=== PATIENT | female | born 1985 | race Caucasian/White ===

== ENCOUNTER 2016-11-21 14:43 | Outpatient (CLI) | payer BC | END 2016-11-21 23:59 | disposition home or self-care (01) | LOC: LAB 14:43 | PROVIDERS: ATTEND Obstetrics & Gynecology | DX: Z34.01 Encounter for supervision of normal first pregnancy, first trimester (principal) | CPT/HCPCS: 84144; 84702-TC; 86900-TC ==

== ENCOUNTER 2016-12-13 13:37 | Outpatient (CLI) | payer BC ==
[2016-12-13 15:26] LABS: BASOPHILS % (AUTO) 0.3 % (0.0-2.0); DIFF TOTAL % 100 %; EOSINOPHILS % (AUTO) 0.3 % (0.0-6.0); HEMATOCRIT 39 % (33-45); HEMOGLOBIN 13.4 g/dL (11.5-14.8); LYMPHOCYTES # (AUTO) 1.6 /CMM (0.8-4.8); MEAN CORPUSCULAR HEMOGLOBIN 31 PG (26.0-33.0); MEAN CORPUSCULAR HGB CONC 34 g/dl (31.0-36.0); MEAN CORPUSCULAR VOLUME 89 fL (82-100); MONOCYTES # (AUTO) 0.4 /CMM (0.1-1.30); MONOCYTES % (AUTO) 4.5 % (2.0-12.0); NEUTROPHILS # (AUTO) 6.7 /CMM (1.8-8.9); NEUTROPHILS % (AUTO) 76.9 % (43.0-81.0); PLATELET COUNT (AUTO) 253 /CMM (150-450); WHITE BLOOD COUNT (AUTO) 8.7 K/uL (4.3-11.0)
[2016-12-14 07:25] LABS: *RAPID PLASMA REAGIN QUAL Non Reactive (Non Reactive)
[2016-12-14 09:55] LABS: HIV-1 p24 ANTIGEN NON REACTIVE (NONREACTIVE); HIV-1/2 ANTIBODY NON REACTIVE (NONREACTIVE)
[2016-12-15 16:03] LABS: *HGBFR CHEMOGLOBIN SOLUBILITY Negative (Negative)
== END 2016-12-13 23:59 | disposition home or self-care (01) ==
LOC: LAB 13:37
PROVIDERS: ATTEND Obstetrics & Gynecology
DX: Z33.1 Pregnant state, incidental (principal)
CPT/HCPCS: 83021; 84443-TC; 85025-TC; 85660; 86592; 86803; 86850-TC; 87340

== ENCOUNTER 2017-03-04 15:40 | Emergency (ER) | payer BC ==
[~2017-03-04] VITALS: Ht 160 cm; Wt 72.1 kg
--- NOTE | 2017-03-04 15:40 | NUR ---
PT FREQUENT URINATION X 2 DAYS. VSS. AWAITING MD ORDER
--- NOTE | 2017-03-04 15:50 | NUR ---
URINE SAMPLE COLLECTED SENT TO LAB
[2017-03-04 16:17] LABS: APPEARANCE,URINE CLEAR (CLEAR); BILIRUBIN,URINE NEGATIVE (NEGATIVE); BLOOD, URINE TRACE Ery/uL (NEGATIVE); KETONES,URINE NEGATIVE (NEGATIVE); LEUKOCYTE ESTERASE ,URINE 1+ (NEGATIVE); NITRITE, URINE NEGATIVE (NEGATIVE); PH,URINE 6.5 (5.0-8.0); PROTEIN,URINE NEGATIVE (NEGATIVE); UGLUCOSE NEGATIVE (NEGATIVE); UROBILINOGEN,URINE 0.2 EU/dL (0.2)
[2017-03-04 16:18] LABS: COLOR,URINE Light yellow (YELLOW)
[2017-03-04 16:28] LABS: BACTERIA,URINE Few /HPF (None Seen); RBC,URINE 0-2 /HPF (0-2); SQUAMOUS EPITHELIAL CELL,UR Few /HPF (None Seen)
--- NOTE | 2017-03-04 16:39 | NUR ---
Patient discharged to home in stable condition. Written and verbal after care instructions given. Patient verbalizes understanding of instruction.
[2017-03-04 16:41] VITALS: BP 136/78
== END 2017-03-04 16:42 | disposition home or self-care (01) ==
LOC: ER 15:43
DX: O23.42 Unspecified infection of urinary tract in pregnancy, second trimester (principal); Z3A.19 19 weeks gestation of pregnancy
CPT/HCPCS: 81001; 87086; 99284; A4606; Z7610; 81000-TC

== ENCOUNTER 2017-03-20 12:39 | Emergency (ER) | payer BC, OTHER ==
[~2017-03-20] VITALS: Ht 160 cm; Wt 70.8 kg
[2017-03-20 12:47] VITALS: BP 154/97
[2017-03-20 13:26] LABS: APPEARANCE,URINE Clear (CLEAR); BILIRUBIN,URINE Negative (NEGATIVE); BLOOD, URINE Trace-intact Ery/uL (NEGATIVE); COLOR,URINE Yellow (YELLOW); KETONES,URINE Negative (NEGATIVE); LEUKOCYTE ESTERASE ,URINE Negative (NEGATIVE); NITRITE, URINE Negative (NEGATIVE); PH,URINE 6.5 (5.0-8.0); PROTEIN,URINE Negative (NEGATIVE); UGLUCOSE Negative (NEGATIVE); UROBILINOGEN,URINE 0.2 EU/dL (0.2)
[2017-03-20 13:28] LABS: PREGNANCY TEST URINE QUAL POSITIVE (NEGATIVE)
[2017-03-20 13:35] LABS: BACTERIA,URINE None seen /HPF (None Seen); RBC,URINE 0-2 /HPF (0-2); SQUAMOUS EPITHELIAL CELL,UR None Seen /HPF (None Seen); WBC,URINE NONE SEEN /HPF (0-3)
== END 2017-03-20 13:45 | disposition home or self-care (01) ==
LOC: ER 12:41
DX: O26.892 Other specified pregnancy related conditions, second trimester (principal); Z87.440 Personal history of urinary (tract) infections; Z3A.22 22 weeks gestation of pregnancy
CPT/HCPCS: 81000-TC; 84703-TC; A4606; Z7610